=== PATIENT | male | born 1995 | race Caucasian/White ===

== ENCOUNTER 2023-06-20 15:01 | Emergency (ER) | payer OTHER ==
[~2023-06-20] VITALS: Ht 198.1 cm; Wt 109.9 kg
[2023-06-20] MEDS ORDERED: AMPICILLIN SOD/SULBACTAM SOD 3 GM in D5W MINI-BAG PLUS 100 ML IV ONE (16:35)
[2023-06-20 17:42] VITALS: BP 138/75; TEMP 98.2; O2SAT 98
== END 2023-06-20 17:45 | disposition short-term general hospital (02) ==
LOC: M ED 15:01
DX: S01.81XA Laceration without foreign body of other part of head, initial encounter (principal); W54.0XXA Bitten by dog, initial encounter; Y92.9 Unspecified place or not applicable
CPT/HCPCS: 96365; 99284; J0295